=== PATIENT | female | born 1970 | race American Indian/Alaskan Native ===

== ENCOUNTER 2017-03-26 09:27 | Observation (INO) | payer MEDICAID ==
[2017-03-26 09:32] VITALS: BMI 29.2
--- NOTE | 2017-03-26 09:39 | ED PDOC ---
HPI: General Adult Time Seen by Provider: 03/26/17 09:33 Chief Complaint (Nursing): Chest Pain Chief Complaint (Provider): chest pain History Per: Patient History/Exam Limitations: no limitations Additional Complaint(s): 47yo female comes to the ED after becoming lightheaded while at [employer]. Patient states symptoms began after walking a little bit. She had chest pain and shortness of breath and felt she might pass out but did not experience a syncopal episode. Using her asthma inhaler did help. Paramedics administered noted SVT at 210 bpm which responded to adenosine 6mg in the field. PMD: Juan J Past Medical History Reviewed: Historical Data, Nursing Documentation, Vital Signs Vital Signs: Last Vital Signs Temp 98.4 F 03/26/17 09:32 Pulse 108 H 03/26/17 09:32 Resp 20 03/26/17 09:32 BP 140/100 H 03/26/17 09:32 Pulse Ox 100 03/26/17 09:47 - Medical History PMH: Asthma - Surgical History Surgical History: No Surg Hx - Family History Family History: States: Unknown Family Hx - Social History Drugs: Denies - Allergies Allergies/Adverse Reactions: Allergies Allergy/AdvReac Type Severity Reaction Status Date / Time No Known Allergies Allergy Verified 03/26/17 09:30 Review of Systems ROS Statement: Except As Marked, All Systems Reviewed And Found Negative Cardiovascular: Positive for: Chest Pain, Palpitations Respiratory: Positive for: Shortness of Breath Physical Exam - Reviewed Nursing Documentation Reviewed: Yes Vital Signs Reviewed: Yes - Physical Exam Appears: Positive for: Well, Non-toxic, No Acute Distress Head Exam: Positive for: ATRAUMATIC, NORMAL INSPECTION, NORMOCEPHALIC Skin: Positive for: Warm, Dry Eye Exam: Positive for: EOMI, PERRL Cardiovascular/Chest: Positive for: Regular Rate, Rhythm Respiratory: Positive for: Normal Breath Sounds. Negative for: Rales, Rhonchi, Wheezing Gastrointestinal/Abdominal: Positive for: Soft. Negative for: Tenderness - ECG O2 Sat by Pulse Oximetry: 100 (RA) Pulse Ox Interpretation: Normal Disposition - Clinical Impression Clinical Impression: Chest pain, SVT (supraventricular tachycardia) - Patient ED Disposition Is Patient to be Admitted: Yes - Disposition Disposition Time: 09:48 Condition: FAIR - Pt Status Changed To: Hospital Disposition Of: Observation - POA Present On Arrival: None Additional Comments - Additional Comments Additional Comments: Scribe Attestation Documented by Abundio Quesada acting as a scribe for Julius Martell MD. Provider Attestation All medical record entries made by the Scribe were at my direction and personally dictated by me. I have reviewed the chart and agree that the record accurately reflects my personal performance of the history, physical exam, medical decision making, and the department course for this patient. I have also personally directed, reviewed, and agree with the discharge instructions and disposition
[2017-03-26 09:56] LABS: BASO % 0.9 % (0.0-2.0); EOS # 0.1 K/uL (0.0-0.7); EOS % 2.9 % (0.0-4.0); HEMATOCRIT 24.8 % (34.0-47.0); LYMPH # 1.7 K/uL (1.0-4.3); LYMPH % 39.2 % (20.0-40.0); MEAN CELL VOLUME 57.5 fl (81.0-99.0); MEAN CORPUSCULAR HEMOGLOBIN 16.9 pg (27.0-31.0); MEAN CORPUSCULAR HGB CONC 29.3 g/dL (33.0-37.0); MEAN PLATELET VOLUME 9.2 fl (7.2-11.7); MONO # 0.3 K/uL (0.0-0.8); MONO % 7.3 % (0.0-10.0); NEUT # 2.1 K/uL (1.8-7.0); NEUT % 49.7 % (50.0-75.0); NRBC % 0.2 % (0.0-0.0); RED CELL DISTRIBUTION WIDTH 20.2 % (11.5-14.5); WHITE BLOOD COUNT 4.3 K/uL (4.8-10.8)
[2017-03-26 10:10] LABS: ALB/GLOB RATIO 1.3 (1.0-2.1); ALKALINE PHOSPHATASE 61 U/L (38-126); ALT/SGPT 28 U/L (9-52); AST/SGOT 26 U/L (14-36); BILIRUBIN,TOTAL 0.5 mg/dl (0.2-1.3); BLOOD UREA NITROGEN 12 mg/dl (7-17); CALCIUM 9.3 mg/dL (8.4-10.2); CARBON DIOXIDE 20 mmol/L (22-30); CHLORIDE 108 mmol/L (98-107); GFR AFRICAN-AMERICAN > 60; GLUCOSE,RANDOM 87 mg/dL (65-105); POTASSIUM 3.6 MMOL/L (3.6-5.0); SODIUM 141 mmol/l (132-148); TOTAL PROTEIN 8.5 G/DL (6.3-8.2)
[2017-03-26] MEDS ORDERED: Albuterol HFA 90 mcg/actuation (8 g) IH PRN (12:58)
[2017-03-26 13:08] LABS: IRON 24 ug/dL (37-170)
[2017-03-26 13:34] LABS: THYROID STIMULATING HORMONE 1.96 mIU/ML (0.46-4.68)
--- NOTE | 2017-03-26 15:39 | RAD ---
HISTORY: Chest pain. COMPARISON: No prior. TECHNIQUE: Chest PA and lateral FINDINGS: LUNGS: No active pulmonary disease. PLEURA: No significant pleural effusion identified. No pneumothorax apparent. CARDIOVASCULAR: No radiographic findings to suggest acute or significant cardiovascular disease. OSSEOUS STRUCTURES: No significant abnormalities. VISUALIZED UPPER ABDOMEN: Normal. OTHER FINDINGS: None. IMPRESSION: No active disease.
--- NOTE | 2017-03-26 16:03 | CARD ---
APPROVED REPORT EKG Measurement Heart [id number] <Conclusion> Sinus tachycardia Otherwise normal ECG
--- NOTE | 2017-03-26 18:17 | CP.PCM.CON ---
History of Present Illness - History of Present Illness History of Present Illness: 47 year old female with a history of asthma, uterine fibroids, menorrhagia, admitted with SVT s/p adenosine, symptomatic anemia. The patient reports to feeling light headed, short of breath, with associated palpitations. She tried her albuterol inhaler with no relief. An ambulance was called and street vendor found the patient in SVT and administered adenosine. In the ER, she was found to have a hgb of 7.3. She notes to heavy periods which initially responded to uterine fibroid surgery but not have been worsening. Past medical history: asthma, uterine fibroids, menorrhagia Past surgical history: Uterine fibroid surgery Family history: Denies hematologic and oncologic problems Social history: Denies tobacco, alchol, and illicit drug use. Allergies: NKA Review of systems: All remaining review of systems inclduing HEENT, cardiovascular, respiratory, gastrointestinal, genitourinary, musculoskeletal, dermatologic, neurologic, and psychiatric are negative unless mentioned in the HPI. Past Patient History - Past Social History Smoking Status: Never Smoked - PULMONARY Hx Asthma: Yes - PSYCHIATRIC Hx Substance Use: No - ANESTHESIA Hx Anesthesia: Yes Meds Allergies/Adverse Reactions: Allergies Allergy/AdvReac Type Severity Reaction Status Date / Time No Known Allergies Allergy Verified 03/26/17 09:30 - Medications Medications: Current Medications Albuterol (Ventolin Hfa 90 Mcg/Actuation (8 G)) 2 puff IH Q4H PRN PRN Reason: Shortness of Breath Iron Sucrose 200 mg/ Sodium (Chloride) 110 mls @ 110 mls/hr IVPB DAILY SHAMEKA Stop: 03/31/17 15:46 Last Admin: 03/26/17 16:23 Dose: 110 mls/hr Physical Exam - Head Exam Head Exam: ATRAUMATIC - Eye Exam Eye Exam: Normal appearance - ENT Exam ENT Exam: Mucous Membranes Dry - Respiratory Exam Respiratory Exam: NORMAL BREATHING PATTERN - Cardiovascular Exam Cardiovascular Exam: +S1, +S2 - GI/Abdominal Exam GI & Abdominal Exam: Normal Bowel Sounds - Extremities Exam Extremities exam: Positive for: normal inspection - Neurological Exam Neurological exam: Oriented x3 - Psychiatric Exam Psychiatric exam: Normal Affect, Normal Mood - Skin Skin Exam: Warm Results - Vital Signs Recent Vital Signs: Last Vital Signs Temp 98.4 F 03/26/17 09:32 Pulse 108 H 03/26/17 09:32 Resp 20 03/26/17 09:32 BP 140/100 H 03/26/17 09:32 Pulse Ox 100 03/26/17 09:48 - Labs Result Diagrams: 03/26/17 09:52 03/26/17 09:52 Labs: Laboratory Results - last 24 hr 03/26/17 03/26/17 03/26/17 09:52 09:52 12:25 WBC 4.3 L RBC 4.31 Hgb 7.3 L Hct 24.8 L MCV 57.5 L MCH 16.9 L MCHC 29.3 L RDW 20.2 H Plt Count 378 MPV 9.2 Neut % (Auto) 49.7 L Lymph % (Auto) 39.2 [place] % (Auto) 7.3 Eos % (Auto) 2.9 Baso % (Auto) 0.9 Neut # 2.1 Lymph # 1.7 [place] # 0.3 Eos # 0.1 Baso # 0.0 Sodium 141 Potassium 3.6 Chloride 108 H Carbon Dioxide 20 L Anion Gap 17 BUN 12 Creatinine 0.6 L Est GFR ( Amer) > 60 Est GFR (Non-Af Amer) > 60 Random Glucose 87 Calcium 9.3 Iron TIBC % Saturation Ferritin 2.9 Total Bilirubin 0.5 AST 26 ALT 28 Alkaline Phosphatase 61 Troponin I < 0.0120 Total Protein 8.5 H Albumin 4.8 Globulin 3.7 Albumin/Globulin Ratio 1.3 TSH 3rd Generation 1.96 Blood Type Antibody Screen BBK History Checked 03/26/17 03/26/17 12:25 12:35 WBC RBC Hgb Hct MCV MCH MCHC RDW Plt Count MPV Neut % (Auto) Lymph % (Auto) [place] % (Auto) Eos % (Auto) Baso % (Auto) Neut # Lymph # [place] # Eos # Baso # Sodium Potassium Chloride Carbon Dioxide Anion Gap BUN Creatinine Est GFR ( Amer) Est GFR (Non-Af Amer) Random Glucose Calcium Iron 24 L TIBC 410 % Saturation 6 L Ferritin Total Bilirubin AST ALT Alkaline Phosphatase Troponin I Total Protein Albumin Globulin Albumin/Globulin Ratio TSH 3rd Generation Blood Type O POSITIVE Antibody Screen Negative BBK History Checked Patient has bt Assessment & Plan (1) Anemia Assessment and Plan: work up consistent with iron deficiency; likely related to menorrhagia but will check FOBT given SVT; recommend 2U PRBC but patient wants to think about a transfusion will start parenteral iron for now if patient consents to blood transfusion, will transfuse tonight. Status: Acute (2) Leukopenia Assessment and Plan: benign Thank you for this interesting consult. Status: Acute
--- NOTE | 2017-03-26 19:28 | CP.PCM.CON ---
History of Present Illness - History of Present Illness History of Present Illness: I was asked to see patient by Dario Stanley APN and Dr. Thomas. Patient is a 47 year old female with PMH anemia who developed palpitations. Symptoms occurred while at work, and the patient was found to be in SVT. Patient was given adenosine and eventually converted to sinus rhythm. The patient was found to have Hgb 7.3. SHe has a previous history of uterine fibroids. Review of Systems - Constitutional Constitutional: absent: As Per HPI, Anorexia, Chills, Daytime Sleepiness, Excessive Sweating, Fatigue, Fever, Frequent Falls, Headache, Increased Appetite , Lethargy, Malaise, Night Sweats, Snoring, Sleep Apnea, Weight Gain, Weight Loss, Weakness, Other - EENT Eyes: absent: As Per HPI, Blind Spots, Blurred Vision, Change in Vision, Decreased Night Vision, Diplopia, Discharge, Dry Eye, Exophthalmos, Floaters, Irritation, Itchy Eyes, Loss of Peripheral Vision, Pain, Photophobia, Requires Corrective Lenses, Sees Flashes, Spots in Vision, Tunnel Vision, Other Visual Disturbances, Loss of Vision, Other Ears: absent: As Per HPI, Decreased Hearing, Ear Discharge, Ear Pain, Tinnitus, Abnormal Hearing, Disequilibrium, Dizziness, Other Nose/Mouth/Throat: absent: As Per HPI, Epistaxis, Nasal Congestion, Nasal Discharge, Nasal Obstruction, Nasal Trauma, Nose Pain, Post Nasal Drip, Sinus Pain, Sinus Pressure, Bleeding Gums, Change in Voice, Dental Pain, Dry Mouth, Dysphagia, Halitosis, Hoarsness, Lip Swelling, Mouth Lesions, Mouth Pain, Odynophagia, Sore Throat, Throat Swelling, Tongue Swelling, Facial Pain, Neck Pain, Neck Mass, Other - Cardiovascular Cardiovascular: Dyspnea, Palpitations - Respiratory Respiratory: Dyspnea - Gastrointestinal Gastrointestinal: absent: As Per HPI, Abdominal Pain, Belching, Bloating, Change in Bowel Habits, Change in Stool Character, Coffee Ground Emesis, Constipation, Cramping, Diarrhea, Dyspepsia, Dysphagia, Early Satiety, Excessive Flatus, Fecal Incontinence, Heartburn, Hematemesis, Hematochezia, Loose Stools, Melena, Nausea, Odynophagia, Temesmus, Vomiting, Other - Genitourinary Genitourinary: absent: As Per HPI, Change in Urinary Stream, Difficulty Urinating, Dysuria, Flank Pain, Hematuria, Pyuria, Nocturia, Urinary Incontinence, Urinary Frequency, Urinary Hesitance, Urinary Urgency, Voiding Freq/Small Amts, Freq UTI, Hx Renal/Bladder Calculi, Hx /Renal Surgery, Bladder Distension, Other - Musculoskeletal Musculoskeletal: absent: As Per HPI, Abnormal Gait, Arthralgias, Atrophy, Back Pain, Deformity, Joint Swelling, Limited Range of Motion, Loss of Height, Muscle Cramps, Muscle Weakness, Myalgias, Neck Pain, Numbness, Radiating Pain into Limb, Stiffness, Tingling, Other - Integumentary Integumentary: absent: As Per HPI, Acne, Alopecia, Bleeding Lesions, Change in Hair, Change in Nails, Change in Pigmentation, Changing Lesions, Dry Skin, Erythema, Furuncle, Hirsutism, Lesions, New Lesions, Non-Healing Lesions, Photosensitivity, Pruritus, Rash, Skin Pain, Skin Ulcer, Sores, Striae, Swelling , Unusual Bruising, Wounds, Jaundice, Other - Neurological Neurological: absent: As Per HPI, Abnormal Gait, Abnormal Hearing, Abnormal Movements, Abnormal Speech, Behavioral Changes, Burning Sensations, Confusion, Convulsions, Disequilibrium, Dizziness, Numbness, Focal Weakness, Frequent Falls , Headaches, Lack of Coordination, Loss of Vision, Memory Loss, Paresthesias, Radicular Pain, Restless Legs, Sensory Deficit, Syncope, Tingling, Tremor, Vertigo, Weakness, Other Visual Disturbances, Other - Psychiatric Psychiatric: absent: As Per HPI, Abnormal Sleep Pattern, Anhedonia, Anxiety, Auditory Hallucinations, Behavioral Changes, Change in Appetite, Change in Libido, Confusion, Depression, Difficulty Concentrating, Hallucinations, Homicidal Ideation, Hopelessness, Irritability, Memory Loss, Mood Swings, Panic Attacks, Paranoia, Suicidal Ideation, Visual Hallucinations, Tactile Hallucinations, Other - Endocrine Endocrine: absent: As Per HPI, Change in Body Appearance, Change in Libido, Cold Intolorance, Deepening of Voice, Excessive Sweating, Fatigue, Flushing, Heat Intolorance, Increase in Ring/Shoe/Hat Size, Palpitations, Polydipsia, Polyphagia, Polyuria, Other - Hematologic/Lymphatic Hematologic: absent: As Per HPI, Easy Bleeding, Easy Bruising, Lymphadenopathy, Other Past Patient History - Past Social History Smoking Status: Never Smoked - PULMONARY Hx Asthma: Yes - PSYCHIATRIC Hx Substance Use: No - ANESTHESIA Hx Anesthesia: Yes Meds Allergies/Adverse Reactions: Allergies Allergy/AdvReac Type Severity Reaction Status Date / Time No Known Allergies Allergy Verified 03/26/17 09:30 - Medications Medications: Current Medications Albuterol (Ventolin Hfa 90 Mcg/Actuation (8 G)) 2 puff IH Q4H PRN PRN Reason: Shortness of Breath Iron Sucrose 200 mg/ Sodium (Chloride) 110 mls @ 110 mls/hr IVPB DAILY SHAMEKA Stop: 03/31/17 15:46 Last Admin: 03/26/17 16:23 Dose: 110 mls/hr Physical Exam - Constitutional Appears: Non-toxic - Head Exam Head Exam: NORMAL INSPECTION - Eye Exam Eye Exam: Normal appearance - ENT Exam ENT Exam: Mucous Membranes Moist - Neck Exam Neck exam: Positive for: Full Rom - Respiratory Exam Respiratory Exam: Decreased Breath Sounds - Cardiovascular Exam Cardiovascular Exam: REGULAR RHYTHM - GI/Abdominal Exam GI & Abdominal Exam: Normal Bowel Sounds - Rectal Exam Rectal Exam: Deferred - Extremities Exam Extremities exam: Negative for: pedal edema - Back Exam Back exam: NORMAL INSPECTION - Neurological Exam Neurological exam: Alert, Oriented x3 - Psychiatric Exam Psychiatric exam: Normal Affect - Skin Skin Exam: Normal Color Results - Vital Signs Recent Vital Signs: Last Vital Signs Temp 98.4 F 03/26/17 09:32 Pulse 108 H 03/26/17 09:32 Resp 20 03/26/17 09:32 BP 140/100 H 03/26/17 09:32 Pulse Ox 100 03/26/17 09:48 - Labs Result Diagrams: 03/26/17 09:52 03/26/17 09:52 Labs: Laboratory Results - last 24 hr 03/26/17 03/26/17 03/26/17 09:52 09:52 12:25 WBC 4.3 L RBC 4.31 Hgb 7.3 L Hct 24.8 L MCV 57.5 L MCH 16.9 L MCHC 29.3 L RDW 20.2 H Plt Count 378 MPV 9.2 Neut % (Auto) 49.7 L Lymph % (Auto) 39.2 [place] % (Auto) 7.3 Eos % (Auto) 2.9 Baso % (Auto) 0.9 Neut # 2.1 Lymph # 1.7 [place] # 0.3 Eos # 0.1 Baso # 0.0 Sodium 141 Potassium 3.6 Chloride 108 H Carbon Dioxide 20 L Anion Gap 17 BUN 12 Creatinine 0.6 L Est GFR ( Amer) > 60 Est GFR (Non-Af Amer) > 60 Random Glucose 87 Calcium 9.3 Iron TIBC % Saturation Ferritin 2.9 Total Bilirubin 0.5 AST 26 ALT 28 Alkaline Phosphatase 61 Troponin I < 0.0120 Total Protein 8.5 H Albumin 4.8 Globulin 3.7 Albumin/Globulin Ratio 1.3 TSH 3rd Generation 1.96 Blood Type Antibody Screen BBK History Checked 03/26/17 03/26/17 12:25 12:35 WBC RBC Hgb Hct MCV MCH MCHC RDW Plt Count MPV Neut % (Auto) Lymph % (Auto) [place] % (Auto) Eos % (Auto) Baso % (Auto) Neut # Lymph # [place] # Eos # Baso # Sodium Potassium Chloride Carbon Dioxide Anion Gap BUN Creatinine Est GFR ( Amer) Est GFR (Non-Af Amer) Random Glucose Calcium Iron 24 L TIBC 410 % Saturation 6 L Ferritin Total Bilirubin AST ALT Alkaline Phosphatase Troponin I Total Protein Albumin Globulin Albumin/Globulin Ratio TSH 3rd Generation Blood Type O POSITIVE Antibody Screen Negative BBK History Checked Patient has bt - EKG Data EKG Interpreted by: Myself Assessment & Plan (1) HTN (hypertension) Assessment and Plan: will monitor blood pressure Status: Acute (2) Anemia Assessment and Plan: agree with transfusion and iron. Status: Acute (3) SVT (supraventricular tachycardia) Assessment and Plan: currently in sinus rhythm. I discussed possible future treatment of SVT, such as radiofrequency ablation. Can add betablocker/calcium channel shahida. check echocardiogram Status: Acute
--- NOTE | 2017-03-27 07:13 | CP.PCM.HP ---
History of Present Illness - History of Present Illness History of Present Illness: pt admitted for svt and found to be anemic-hgb 7.3. pt has h/o uterine fibroids removed at [facility] y[facility] ago. at present denies complaitns. no f/c, n/v/ d. pt is on 2nd unit prbc at present. pending us and am labs. Present on Admission - Present on Admission Any Indicators Present on Admission: No Review of Systems - Cardiovascular Cardiovascular: As Per HPI, Rapid Heart Rate Past Patient History - Past Medical History & Family History Past Medical History?: Yes - Past Social History Smoking Status: Never Smoked - PULMONARY Hx Respiratory Disorders: Yes Hx Asthma: Yes - HEMATOLOGICAL/ONCOLOGICAL Hx Anemia: Yes - MUSCULOSKELETAL/RHEUMATOLOGICAL Hx Falls: No - PSYCHIATRIC Hx Substance Use: No - ANESTHESIA Hx Anesthesia: Yes Hx Anesthesia Reactions: No Meds Allergies/Adverse Reactions: Allergies Allergy/AdvReac Type Severity Reaction Status Date / Time No Known Allergies Allergy Verified 03/26/17 09:30 Physical Exam - Constitutional Appears: Well, Non-toxic, No Acute Distress - Head Exam Head Exam: ATRAUMATIC, NORMAL INSPECTION, NORMOCEPHALIC - Eye Exam Eye Exam: EOMI, Normal appearance, PERRL Pupil Exam: NORMAL ACCOMODATION, PERRL - ENT Exam ENT Exam: Mucous Membranes Moist, Normal Exam - Neck Exam Neck exam: Positive for: Normal Inspection - Respiratory Exam Respiratory Exam: Clear to Auscultation Bilateral, NORMAL BREATHING PATTERN - Cardiovascular Exam Cardiovascular Exam: REGULAR RHYTHM, RRR, +S1, +S2 - GI/Abdominal Exam GI & Abdominal Exam: Normal Bowel Sounds, Soft. absent: Tenderness - Extremities Exam Extremities exam: Positive for: full ROM, normal capillary refill, normal inspection, pedal pulses present - Back Exam Back exam: NORMAL INSPECTION - Neurological Exam Neurological exam: Alert, CN II-XII Intact, Normal Gait, Oriented x3, Reflexes Normal - Psychiatric Exam Psychiatric exam: Normal Affect, Normal Mood - Skin Skin Exam: Dry, Intact, Normal Color, Warm Results - Vital Signs Recent Vital Signs: Last Vital Signs Temp 98.1 F 03/27/17 06:36 Pulse 62 03/27/17 04:45 Resp 20 03/27/17 04:45 BP 97/61 L 03/27/17 06:36 Pulse Ox 100 03/27/17 04:45 - Labs Result Diagrams: 03/26/17 09:52 03/26/17 09:52 Labs: Laboratory Results - last 24 hr 03/26/17 03/26/17 03/26/17 09:52 09:52 12:25 WBC 4.3 L RBC 4.31 Hgb 7.3 L Hct 24.8 L MCV 57.5 L MCH 16.9 L MCHC 29.3 L RDW 20.2 H Plt Count 378 MPV 9.2 Neut % (Auto) 49.7 L Lymph % (Auto) 39.2 [place] % (Auto) 7.3 Eos % (Auto) 2.9 Baso % (Auto) 0.9 Neut # 2.1 Lymph # 1.7 [place] # 0.3 Eos # 0.1 Baso # 0.0 Sodium 141 Potassium 3.6 Chloride 108 H Carbon Dioxide 20 L Anion Gap 17 BUN 12 Creatinine 0.6 L Est GFR ( Amer) > 60 Est GFR (Non-Af Amer) > 60 Random Glucose 87 Calcium 9.3 Iron TIBC % Saturation Transferrin Ferritin 2.9 Total Bilirubin 0.5 AST 26 ALT 28 Alkaline Phosphatase 61 Troponin I < 0.0120 Total Protein 8.5 H Albumin 4.8 Globulin 3.7 Albumin/Globulin Ratio 1.3 TSH 3rd Generation 1.96 Blood Type Antibody Screen Crossmatch BBK History Checked 03/26/17 03/26/17 03/26/17 12:25 12:25 12:35 WBC RBC Hgb Hct MCV MCH MCHC RDW Plt Count MPV Neut % (Auto) Lymph % (Auto) [place] % (Auto) Eos % (Auto) Baso % (Auto) Neut # Lymph # [place] # Eos # Baso # Sodium Potassium Chloride Carbon Dioxide Anion Gap BUN Creatinine Est GFR ( Amer) Est GFR (Non-Af Amer) Random Glucose Calcium Iron 24 L TIBC 410 % Saturation 6 L Transferrin 332.08 Ferritin Total Bilirubin AST ALT Alkaline Phosphatase Troponin I Total Protein Albumin Globulin Albumin/Globulin Ratio TSH 3rd Generation Blood Type O POSITIVE Antibody Screen Negative Crossmatch See Detail BBK History Checked Patient has bt Assessment & Plan (1) DVT prophylaxis Assessment and Plan: scd and ae hose ambulation hold anticoag for anemia Status: Acute (2) Anemia Assessment and Plan: ?? r/t fibroids transvaginal us. on 2nd unit prbc heme/onc concsult iron panel noted Status: Acute (3) HTN (hypertension) Assessment and Plan: normotensive at present, will monitor Status: Acute (4) SVT (supraventricular tachycardia) Assessment and Plan: broke w/ adenosine cardio tele obs ?? r/t anemia Status: Acute Decision To Admit - Pt Status Changed To: Hospital Disposition Of: Observation - . Bed Request Type: Telemetry Admitting Physician: Jacquie Thomas
[2017-03-27 08:05] VITALS: RESP 18
--- NOTE | 2017-03-27 11:23 | US ---
PROCEDURE: HISTORY: h/o fibroids, anemia COMPARISON: TECHNIQUE: FINDINGS: The uterus measures 10.8 x 10.6 x 7.5 centimeters. The endometrium measures 12 millimeters. There are multiple fibroids present. The lower uterine segment there is a 5.6 centimeter fibroid as well as 3.9 centimeter fundal leiomyoma. In the left fundus there is a 3.5 centimeter leiomyoma. Both ovaries are not identified. There is no free fluid the pelvis. IMPRESSION: Leiomyomatous uterus as discussed above.
[2017-03-27 12:41] LABS: BASO # 0.1 K/uL (0.0-0.2); BASO % 1.3 % (0.0-2.0); EOS # 0.2 K/uL (0.0-0.7); EOS % 3.6 % (0.0-4.0); HEMATOCRIT 29.7 % (34.0-47.0); LYMPH # 1.4 K/uL (1.0-4.3); LYMPH % 21.4 % (20.0-40.0); MEAN CELL VOLUME 63.5 fl (81.0-99.0); MEAN CORPUSCULAR HEMOGLOBIN 19.5 pg (27.0-31.0); MEAN CORPUSCULAR HGB CONC 30.7 g/dL (33.0-37.0); MEAN PLATELET VOLUME 8.5 fl (7.2-11.7); MONO # 0.8 K/uL (0.0-0.8); NEUT # 4.1 K/uL (1.8-7.0); NEUT % 61.7 % (50.0-75.0); NRBC % 0.1 % (0.0-0.0); RED CELL DISTRIBUTION WIDTH 26.5 % (11.5-14.5); WHITE BLOOD COUNT 6.7 K/uL (4.8-10.8)
[2017-03-27 12:55] LABS: ALB/GLOB RATIO 1.3 (1.0-2.1); ALKALINE PHOSPHATASE 52 U/L (38-126); ALT/SGPT 21 U/L (9-52); AST/SGOT 22 U/L (14-36); BILIRUBIN,TOTAL 0.9 mg/dl (0.2-1.3); BLOOD UREA NITROGEN 10 mg/dl (7-17); CALCIUM 9.3 mg/dL (8.4-10.2); CARBON DIOXIDE 23 mmol/L (22-30); CHLORIDE 105 mmol/L (98-107); GFR AFRICAN-AMERICAN > 60; GLUCOSE,RANDOM 81 mg/dL (65-105); POTASSIUM 3.7 MMOL/L (3.6-5.0); SODIUM 140 mmol/l (132-148); TOTAL PROTEIN 7.7 G/DL (6.3-8.2)
[2017-03-27 16:23] VITALS: BP 105/66; PULSE 83; TEMP 97.9; O2SAT 99
--- NOTE | 2017-03-27 21:00 | CP.PCM.DIS ---
Provider - Provider Date of Admission: 03/26/17 09:45 Attending physician: Jacquie Thomas MD Time Spent in preparation of Discharge (in minutes): 15 Diagnosis - Discharge Diagnosis (1) DVT prophylaxis Status: Acute (2) Anemia Status: Acute (3) HTN (hypertension) Status: Acute (4) SVT (supraventricular tachycardia) Status: Acute Hospital Course - Lab Results Lab Results: Most Recent Lab Values WBC 6.7 K/uL (4.8-10.8) D 03/27/17 12:15 RBC 4.67 Mil/uL (3.80-5.20) 03/27/17 12:15 Hgb 9.1 g/dL (12.0-16.0) L 03/27/17 12:15 Hct 29.7 % (34.0-47.0) L 03/27/17 12:15 MCV 63.5 fl (81.0-99.0) L D 03/27/17 12:15 MCH 19.5 pg (27.0-31.0) L 03/27/17 12:15 MCHC 30.7 g/dL (33.0-37.0) L 03/27/17 12:15 RDW 26.5 % (11.5-14.5) H 03/27/17 12:15 Plt Count 353 K/uL (130-400) 03/27/17 12:15 MPV 8.5 fl (7.2-11.7) 03/27/17 12:15 Neut % (Auto) 61.7 % (50.0-75.0) 03/27/17 12:15 Lymph % (Auto) 21.4 % (20.0-40.0) 03/27/17 12:15 [place] % (Auto) 12.0 % (0.0-10.0) H 03/27/17 12:15 Eos % (Auto) 3.6 % (0.0-4.0) 03/27/17 12:15 Baso % (Auto) 1.3 % (0.0-2.0) 03/27/17 12:15 Neut # 4.1 K/uL (1.8-7.0) 03/27/17 12:15 Lymph # 1.4 K/uL (1.0-4.3) 03/27/17 12:15 [place] # 0.8 K/uL (0.0-0.8) 03/27/17 12:15 Eos # 0.2 K/uL (0.0-0.7) 03/27/17 12:15 Baso # 0.1 K/uL (0.0-0.2) 03/27/17 12:15 Sodium 140 mmol/l (132-148) 03/27/17 12:15 Potassium 3.7 MMOL/L (3.6-5.0) 03/27/17 12:15 Chloride 105 mmol/L (98-107) 03/27/17 12:15 Carbon Dioxide 23 mmol/L (22-30) 03/27/17 12:15 Anion Gap 16 (10-20) 03/27/17 12:15 BUN 10 mg/dl (7-17) 03/27/17 12:15 Creatinine 0.6 mg/dL (0.7-1.2) L 03/27/17 12:15 Est GFR ( Amer) > 60 03/27/17 12:15 Est GFR (Non-Af Amer) > 60 03/27/17 12:15 Random Glucose 81 mg/dL (65-105) 03/27/17 12:15 Calcium 9.3 mg/dL (8.4-10.2) 03/27/17 12:15 Iron 24 ug/dL (37-170) L 03/26/17 12:25 TIBC 410 ug/dL (250-450) 03/26/17 12:25 % Saturation 6 % (20-55) L 03/26/17 12:25 Transferrin 332.08 mg/dL (206-381) 03/26/17 12:25 Ferritin 2.9 ng/mL 03/26/17 12:25 Total Bilirubin 0.9 mg/dl (0.2-1.3) 03/27/17 12:15 AST 22 U/L (14-36) 03/27/17 12:15 ALT 21 U/L (9-52) 03/27/17 12:15 Alkaline Phosphatase 52 U/L (38-126) 03/27/17 12:15 Troponin I < 0.0120 ng/mL (0.00-0.120) 03/26/17 09:52 Total Protein 7.7 G/DL (6.3-8.2) 03/27/17 12:15 Albumin 4.4 g/dL (3.5-5.0) 03/27/17 12:15 Globulin 3.4 gm/dL (2.2-3.9) 03/27/17 12:15 Albumin/Globulin Ratio 1.3 (1.0-2.1) 03/27/17 12:15 TSH 3rd Generation 1.96 mIU/ML (0.46-4.68) 03/26/17 12:25 Stool Occult Blood Negative (NEGATIVE) 03/27/17 14:45 Blood Type O POSITIVE 03/26/17 12:35 Antibody Screen Negative 03/26/17 12:35 Crossmatch See Detail 03/26/17 12:35 BBK History Checked Patient has bt 03/26/17 12:35 Discharge Exam - Head Exam Head Exam: ATRAUMATIC, NORMAL INSPECTION, NORMOCEPHALIC Discharge Plan - Discharge Medications Prescriptions: Ferrous Sulfate [Feosol] 325 mg PO TID #90 tab - Follow Up Plan Condition: FAIR Disposition: HOME/ ROUTINE Instructions: Supraventricular Tachycardia (DC), Anemia (DC) Additional Instructions: doing well, nsr on monitor, stable and ocmforatble per rn. dc after venofer. cleared by heme/onc and cardio f/u rmg 2 days, cardio/service assistant/hemeonc 1 wk. rted prn. outpt po iron/iv iron. us and echo noted. final dx-svt likely provided by anemia provoked by uterine fibroid as stool blood negative Referrals: Rl Torres MD [Staff Provider] - Anselmo Arita MD [Staff Provider] - Andre Youssef MD [Staff Provider] -
--- NOTE | 2017-03-28 07:35 | CARD ---
APPROVED REPORT EXAM: Two-dimensional and M-mode echocardiogram with Doppler and color Doppler. Other Information Quality : Good[employer] : 2D DIMENSIONS IVSd0.95 (0.7-1.1cm)LVDd4.22 (3.9-5.9cm) LVOT Diameter1.55 (1.8-2.4cm)PWd0.96 (0.7-1.1cm) IVSs1.18 (0.8-1.2cm)LVDs2.56 (2.5-4.0cm) FS (%) 39.4 %PWs1.26 (0.8-1.2cm) M-Mode DIMENSIONS Left Atrium (MM)3.38 (2.5-4.0cm)IVSd0.84 (0.7-1.1cm) Aortic Root2.75 (2.2-3.7cm)LVDd4.17 (4.0-5.6cm) Aortic Cusp Exc.1.56 (1.5-2.0cm)PWd1.00 (0.7-1.1cm) IVSs1.56 cmFS (%) 51 % LVDs2.05 (2.0-3.8cm)PWs1.74 cm Aortic Valve AoV Peak Vcmdgnrf081.6cm/Guy Peak GR.9mmHgLVOT Peak Ymjewvly961.4cm/s GENIE (VMAX)0.99cm2 Mitral Valve MV E Gooqdspi93.7cm/sMV DECEL [id number] A Petptyvq19.2cm/s MV IWR42stF/A ratio1.5MVA (PHT)3.70cm2 TDI Lateral E' Peak V17.44cm/sMedial E' Peak V11.49cm/sE/Lateral E'5.0 E/Medial E'7.6 Pulmonary Valve PV Peak Lutaiecl160.9cm/s Tricuspid Valve TR Peak Quelungj958rv/sRAP FOFZLPJO84qkXlCM Peak Gr.6mmHg [id number] LEFT VENTRICLE The left ventricle is normal size. There is normal left ventricular wall thickness. Left ventricle systolic function is normal. The Ejection Fraction is >70%. There is normal LV segmental wall motion. The left ventricular diastolic function is normal. RIGHT VENTRICLE The right ventricle is normal size. There is normal right ventricular wall thickness. The right ventricular systolic function is normal. ATRIA The left atrium size is normal. The right atrium size is normal. AORTIC VALVE The aortic valve is normal in structure and function. No aortic regurgitation is present. There is no aortic valvular stenosis. MITRAL VALVE The mitral valve is normal in structure and function. There is no evidence of mitral valve prolapse. There is no mitral valve stenosis. Mitral regurgitation is trace. TRICUSPID VALVE The tricuspid valve is normal in structure. There is trace tricuspid regurgitation. Right ventricular systolic pressure is estimated at 21 mmHg. There is no pulmonary hypertension. PULMONIC VALVE The pulmonary valve is normal in structure and function. There is no pulmonic valvular regurgitation. GREAT VESSELS The aortic root is normal in size. The IVC is normal in size and collapses >50% with inspiration. PERICARDIAL EFFUSION The pericardium appears normal. <Conclusion> This was a normal echocardiographic study.
== END 2017-03-27 16:22 | disposition home or self-care (01) ==
LOC: H.ER 09:27 → H.ERHOLD 09:45 → H.TEL 21:22
PROVIDERS: ADMIT Family Medicine; ATTEND Family Medicine
DX: I47.1 Supraventricular tachycardia (principal); D64.9 Anemia, unspecified; D25.9 Leiomyoma of uterus, unspecified; J45.909 Unspecified asthma, uncomplicated; I10 Essential (primary) hypertension; D72.819 Decreased white blood cell count, unspecified; N92.0 Excessive and frequent menstruation with regular cycle; E61.1 Iron deficiency